=== PATIENT | female | born 1940 | race Caucasian/White ===

== ENCOUNTER 2019-02-01 09:34 | Outpatient (CLI) | payer MEDICARE, OTHER ==
--- NOTE | 2019-02-01 10:48 | CT ---
LOW DOSE CT CHEST WITHOUT IV CONTRAST FOR LUNG CANCER SCREENING: HISTORY: Encounter for screening for malignant neoplasm of the respiratory organs. FINDINGS: There is a 3-4 mm peripheral solid lung nodule in the right upper lobe. Atelectatic changes are seen in the lower lung jameson. There are vascular calcifications without evidence of aneurysmal dilatation of the thoracic aorta. No pleural or pericardial effusions are seen. There are degenerative changes in the spine. IMPRESSION: Lung-RADS 2 - benign. RECOMMENDATIONS: Follow up LDCT is recommended in 12 months. POS: MIREYA
== END 2019-02-01 09:35 | disposition home or self-care (01) ==
LOC: CT 09:34
PROVIDERS: ATTEND Internal Medicine
DX: Z12.2 Encounter for screening for malignant neoplasm of respiratory organs (principal); Z87.891 Personal history of nicotine dependence
CPT/HCPCS: G0297

== ENCOUNTER 2020-02-09 10:58 | Outpatient (CLI) | payer MEDICARE, OTHER ==
--- NOTE | 2020-02-09 12:00 | CT ---
CT chest noncontrast low-dose screening HISTORY: Tobacco abuse. COMPARISON: 02/01/2019. FINDINGS: The 0.3 cm noncalcified nodule abutting the pleura at the lateral aspect of the right upper lobe is unchanged in appearance. Linear scarring at the right posterior medial lung base is also stable. No new nodules are evident. There are now 2 subtle areas of non-mass like very small groundgl ass opacity at the periphery of the right upper and lower lobes. No pleural fluid or pneumothorax. Lack of contrast limits evaluation the soft tissues. No evidence of mediastinal adenopathy. IMPRESSION : Lung RADS category 2. Benign findings. Suggest routine screening.
== END 2020-02-09 10:59 | disposition home or self-care (01) ==
LOC: BICCT 10:58
PROVIDERS: ATTEND Internal Medicine
DX: Z12.2 Encounter for screening for malignant neoplasm of respiratory organs (principal); Z87.891 Personal history of nicotine dependence
CPT/HCPCS: G0297

== ENCOUNTER 2020-08-22 09:59 | Outpatient (CLI) | payer MEDICARE, OTHER | END 2020-08-22 10:00 | disposition home or self-care (01) | LOC: SCSMRI 09:59 | PROVIDERS: ATTEND Internal Medicine | DX: M47.26 Other spondylosis with radiculopathy, lumbar region (principal) | CPT/HCPCS: 72148 ==

== ENCOUNTER 2021-02-11 10:46 | Outpatient (CLI) | payer MEDICARE, OTHER | END 2021-02-11 10:47 | disposition home or self-care (01) | LOC: BICCT 10:46 | PROVIDERS: ATTEND Internal Medicine | DX: Z12.2 Encounter for screening for malignant neoplasm of respiratory organs (principal); F17.210 Nicotine dependence, cigarettes, uncomplicated | CPT/HCPCS: 71271 ==

== ENCOUNTER 2022-02-12 13:01 | Outpatient (CLI) | payer MEDICARE, OTHER | END 2022-02-12 13:02 | disposition home or self-care (01) | LOC: BICCT 13:01 | PROVIDERS: ATTEND Nurse Practitioner Adult Health | DX: Z12.2 Encounter for screening for malignant neoplasm of respiratory organs (principal); Z87.891 Personal history of nicotine dependence | CPT/HCPCS: 71271 ==

== ENCOUNTER 2022-10-20 15:59 | Outpatient (CLI) | payer MEDICARE | END 2022-10-20 16:00 | disposition home or self-care (01) | LOC: SCSRAD 15:59 | PROVIDERS: ATTEND Nurse Practitioner Family | DX: R05.1 Acute cough (principal) | CPT/HCPCS: 71046 ==

== ENCOUNTER 2024-10-11 09:13 | Outpatient (CLI) | payer MEDICARE | END 2024-10-11 09:14 | disposition home or self-care (01) | LOC: BICULT 09:13 | PROVIDERS: ATTEND Urology | DX: N28.1 Cyst of kidney, acquired (principal) | CPT/HCPCS: 76770 ==